=== PATIENT | male | born 1995 | race Caucasian/White ===

== ENCOUNTER 2022-04-24 18:39 | Emergency (ER) | payer OTHER, SELFPAY ==
[2022-04-24 19:00] VITALS: BP 128/89; PULSE 82; RESP 18; TEMP 36.3; O2SAT 99
--- NOTE | 2022-04-24 19:26 | ED_ITS ---
HPI - Dental/Oral General Chief complaint: Dental/Oral Stated complaint: right upper jaw pain Time Seen by Provider: 04/24/22 19:10 History of Present Illness HPI Narrative: 27-year-old male presents the emergency room for evaluation of dental pain. Patient states that he was seen at an urgent care in [place] last week and was given 3-day course of tramadol and some antibiotics. Patient states he is completed the course of antibiotics. Patient presents requesting refill of tramadol. States that he has a dental appointment for next week. Related Data Allergies Allergy/AdvReac Type Severity Reaction Status Date / Time No Known Allergies Allergy Verified 04/24/22 19:02 Review of Systems Review of Systems: CONSTITUTIONAL: Denies fever, chills, or sweats. EYES: Denies visual changes, redness, or discharge. ENT: Reports dental pain CARDIOVASCULAR: Denies chest pain, palpitations, or edema. RESPIRATORY: Denies cough or dyspnea. GASTROINTESTINAL: Denies abdominal pain, nausea, vomiting, or diarrhea. GENITOURINARY: Denies dysuria or hematuria. SKIN: Denies rash or itching. MUSCULOSKELETAL: Denies back pain, joint pain, or myalgia. NEUROLOGIC: Denies headache, numbness, dizziness, or weakness. PSYCHIATRIC: Denies anxiety or depression. Exam Narrative: GENERAL: Well-appearing, well-nourished, no physical limitations, and in no acute distress. HEAD: Normocephalic, atraumatic. EYES: Conjunctivae normal, PERRLA and EOMI. ENT: Widespread dental caries and periodontal disease. No abscess noted to right lower molar NECK: Supple. No adenopathy or masses. CHEST: Clear to auscultation. No respiratory distress. No wheezes rales or rhonchi. No tenderness. HEART: Regular rate and rhythm. No murmur heard. Normal peripheral pulses. EXTREMITIES: Normal range of motion. No edema. No clubbing or cyanosis SKIN: Warm, dry, no rash. No noted wounds NEURO: No focal deficits. Alert and oriented x3. MAEW. CN's II-XI intact bilaterally, normal gait PSYCH: Cooperative. Normal mood and affect. Course Vital Signs Vital signs: Vital Signs Temperature 36.3 C L 04/24/22 19:00 Pulse Rate 82 04/24/22 19:00 Respiratory Rate 18 04/24/22 19:00 Blood Pressure 128/89 04/24/22 19:00 Pulse Oximetry 99 04/24/22 19:00 Oxygen Delivery Room Air 04/24/22 19:00 Temperature 36.3 C L 04/24/22 19:00 Pulse Rate 82 04/24/22 19:00 Respiratory Rate 18 04/24/22 19:00 Blood Pressure 128/89 04/24/22 19:00 Pulse Oximetry 99 04/24/22 19:00 Oxygen Delivery Room Air 04/24/22 19:00 Discharge Plan Discharge Clinical Impression: Dental caries, Toothache Patient Disposition: Home, Self-Care Condition: Stable Instructions: Antibiotic Form, Toothache (ED) Prescriptions: New tramadol 50 mg tablet 50 mg PO Q6H PRN (Reason: pain) Qty: 20 0RF Follow-up/Referrals: PHYSICIAN,HEAD OF [employer]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
== END 2022-04-24 19:37 | disposition home or self-care (01) ==
LOC: ANHED 19:28
PROVIDERS: Emergency Provider Nurse Practitioner Family
DX: K02.9 Dental caries, unspecified (principal)
CPT/HCPCS: 99283

== ENCOUNTER 2023-05-10 06:46 | Emergency (ER) | payer OTHER, SELFPAY ==
[2023-05-10 06:51] VITALS: BP 147/84; PULSE 70; RESP 15; TEMP 36.6; O2SAT 99
[2023-05-10 07:11] LABS: Basophils Percent Auto 0.3 % (0.2-1.2); Eosinophils Absolute Auto 0.1 K/mm3 (0-0.3); Eosinophils Percent Auto 0.6 % (0-4.4); Hemoglobin 14.1 g/dL (14.0-18.0); Immature Granulocyte Absolute 0.05 K/mm3 (0.00-0.031); Immature Granulocyte Percent A 0.4 % (0-0.5); Lymphocytes Absolute Auto 1.61 K/mm3 (0.9-3.2); Lymphocytes Percent Auto 13.6 % (18.3-44.2); Mean Corpuscular HGB Conc 33.6 g/dl (32-36); Mean Corpuscular Hemoglobin 28.8 pg (26-34); Mean Corpuscular Volume 85.9 fl (80-100); Mean Platelet Volume 9.7 fl (7.4-10.4); Monocytes Absolute Auto 0.4 K/mm3 (0.1-0.6); Monocytes Percent Auto 3.5 % (2.6-8.5); Neutrophils Absolute Auto 9.7 K/mm3 (1.3-6.7); Neutrophils Percent Auto 81.6 % (45.5-73.1); Platelet Count Result 215 k/mm3 (150-375); Red Blood Count 4.89 M/mm3 (4.6-6.20); Red Cell Distribution Width 13.2 % (11.5-14.5); White Blood Count 11.9 K/mm3 (4.5-10.0)
[2023-05-10 07:26] LABS: Alanine Aminotransferase 115 U/L (6-50); Albumin Level 4.7 g/dL (3.5-5.1); Alkaline Phosphatase 115 U/L (38-126); Anion Gap 8 mmol/L (8-16); Aspartate Amino Transferase 54 U/L (17-59); Bilirubin,Total 0.9 mg/dL (0.2-1.3); Blood Urea Nitrogen 14 mg/dL (9-20); Calcium 9.8 mg/dL (8.4-10.2); Carbon Dioxide 29 mmol/L (22-30); Chloride 102 mmol/L (98-107); Estimated CRCL calculation 113 ml/min; Estimated Glomerular Filt Rate > 60; Glucose 89 mg/dL (65-110); Lipase 44 U/L (23-300); Potassium 4.1 mmol/L (3.4-5.0); Sodium 139 mmol/L (137-145)
--- NOTE | 2023-05-10 08:15 | ED.GENADULT ---
HPI - General Adult General Chief complaint: Nausea/Vomiting/Diarrhea Stated complaint: N/V/D Time Seen by Provider: 05/10/23 07:56 History of Present Illness HPI narrative: Patient is a 28-year-old male who presents ER with diarrhea. Ongoing over the last 2 to 3 days. He is having 2 loose stools a day. He did have some urgency where he defecated on himself while driving. He has had some mild nausea with vomiting as well. He reports he was driving back from [place] when this was occurring. He has no fevers or chills. He is concerned he may bring this back to his child. No history of recurrent diarrhea or Crohn's/ulcerative colitis. Related Data Allergies Allergy/AdvReac Type Severity Reaction Status Date / Time No Known Allergies Allergy Verified 04/24/22 19:02 Review of Systems Review of Systems: All systems reviewed & are unremarkable except as noted in HPI and below Constitutional: Constitutional: Denies chills, Denies fatigue and Denies fever(s) ENT: Reports system reviewed and no additional complaints, except as documented Cardiovascular: Cardiovascular: Reports no additional cardiovascular complaints Respiratory: Respiratory: Reports no additional respiratory complaints Gastrointestinal: Gastrointestinal: Denies abdominal pain, Denies constipation, Reports diarrhea, Reports nausea and Reports vomiting Musculoskeletal: Musculoskeletal: Reports no additional musculoskeletal complaints PMFSH Past Medical History Medical History (Updated 05/10/23 @ 08:21 by Luis Ferreira MD) Healthy adult male Surgical History Surgical History (Updated 05/10/23 @ 08:21 by Luis Ferreira MD) No history of previous surgery Exam Narrative: GENERAL: Well-appearing, well-nourished, and in no acute distress. HEAD: Normocephalic, atraumatic. ENT: Mucous membranes moist. CHEST: Clear to auscultation. No respiratory distress. HEART: Regular rate and rhythm. Normal peripheral pulses. ABDOMEN: Soft, nontender, nondistended. EXTREMITIES: Normal range of motion. No edema. SKIN: Warm, dry, no rash. NEURO: Alert and oriented x3. PSYCH: Normal mood and affect. Course Course Emergency Course: Benign exam. Discussed supportive care at home. We will give a work note. Nonspecific ALT elevation, may be related to viral GI illness. Vital Signs Vital signs: Vital Signs Temperature 97.8 F 05/10/23 06:51 Pulse Rate 70 05/10/23 06:51 Respiratory Rate 15 05/10/23 06:51 Blood Pressure 147/84 H 05/10/23 06:51 Pulse Oximetry 99 05/10/23 06:51 Oxygen Delivery Room Air 05/10/23 06:51 Temperature 97.8 F 05/10/23 06:51 Pulse Rate 70 05/10/23 06:51 Respiratory Rate 15 05/10/23 06:51 Blood Pressure 147/84 H 05/10/23 06:51 Pulse Oximetry 99 05/10/23 06:51 Oxygen Delivery Room Air 05/10/23 06:51 Medical Decision Making Vital Signs Vital Signs: Vital Signs Temperature 97.8 F 05/10/23 06:51 Pulse Rate 70 05/10/23 06:51 Respiratory Rate 15 05/10/23 06:51 Blood Pressure 147/84 H 05/10/23 06:51 Pulse Oximetry 99 05/10/23 06:51 Oxygen Delivery Room Air 05/10/23 06:51 Temperature 97.8 F 05/10/23 06:51 Pulse Rate 05/10/23 06:51 Respiratory Rate 05/10/23 06:51 Blood Pressure 147/84 H 05/10/23 06:51 Pulse Oximetry 99 05/10/23 06:51 Oxygen Delivery Room Air 05/10/23 06:51 Lab Data 05/10/23 06:57 05/10/23 06:57 Labs: Lab Results 05/10/23 Range/Units 06:57 WBC 11.9 H (4.5-10.0) K/mm3 RBC 4.89 (4.6-6.20) M/mm3 Hgb 14.1 (14.0-18.0) g/dL Hct 42.0 (42.0-52.0) % MCV 85.9 (80-100) fl MCH 28.8 (26-34) pg MCHC 33.6 (32-36) g/dl RDW 13.2 (11.5-14.5) % Plt Count 215 (150-375) k/mm3 MPV 9.7 (7.4-10.4) fl Immature Gran % (Auto) 0.4 (0-0.5) % Neut % (Auto) 81.6 H (45.5-73.1) % Lymph % (Auto) 13.6 L (18.3-44.2) % [place] % (Auto) 3.5 (2.6-8.5) % Eos
[2023-05-10 09:05] VITALS: BP 112/80; PULSE 62; RESP 16; O2SAT 97
== END 2023-05-10 09:05 | disposition home or self-care (01) ==
PROVIDERS: Student in an Organized Health Care Education/Training Program; Emergency Provider Emergency Medicine
DX: K52.9 Noninfective gastroenteritis and colitis, unspecified (principal)
CPT/HCPCS: 36415; 80053; 83690; 85025; 99283

== ENCOUNTER 2023-08-27 18:54 | Emergency (ER) | payer OTHER, SELFPAY ==
--- NOTE | ~2023-08-27 | XR_ITS ---
EXAMINATION: XR chest 2V DATE: 08/27/2023 19:18 INDICATION: Chest pain and shortness of breath TECHNIQUE: PA and lateral views of the chest were obtained. COMPARISON: Chest radiograph dated 08/06/2015 FINDINGS: The lungs remain clear with no focal airspace opacities, pulmonary edema, pleural effusion or pneumot horax. The cardiomediastinal silhouette is normal. Visualized bones and soft tissues are unremarkable . IMPRESSION: 1. Normal chest radiograph. Reviewed, dictated and finalized at location A. CT SERVICE PROFESSIONAL IMPRESSION: 1. Normal chest radiograph.
--- NOTE | 2023-08-27 18:55 | ECG_ITS ---
Measurements Intervals [place] Rate: 63 P: 64 MA: 177 QRS: 14 QRSD: 113 T: 49 QT: 380 QTc: 391 Interpretive Statements SINUS RHYTHM WITH SINUS ARRHYTHMIA INCOMPLETE RIGHT BUNDLE BRANCH BLOCK BORDERLINE ECG NO PREVIOUS ECG AVAILABLE FOR COMPARISON Electronically Signed On 08-27-2023 19:27:14 [employer] ASSISTANT by Elvin Mix D.O.
[2023-08-27 19:10] VITALS: BP 133/84; PULSE 68; RESP 18; TEMP 36.6; O2SAT 100
[2023-08-27 19:12] LABS: Basophils Absolute Auto 0.1 K/mm3 (0.0-0.1); Basophils Percent Auto 0.8 % (0.2-1.2); Eosinophils Absolute Auto 0.5 K/mm3 (0-0.3); Eosinophils Percent Auto 4.7 % (0-4.4); Hematocrit 42.9 % (42.0-52.0); Hemoglobin 14.1 g/dL (14.0-18.0); Immature Granulocyte Absolute 0.02 K/mm3 (0.00-0.031); Immature Granulocyte Percent A 0.2 % (0-0.5); Lymphocytes Absolute Auto 3.57 K/mm3 (0.9-3.2); Lymphocytes Percent Auto 36.9 % (18.3-44.2); Mean Corpuscular HGB Conc 32.9 g/dl (32-36); Mean Corpuscular Hemoglobin 28.6 pg (26-34); Mean Platelet Volume 9.8 fl (7.4-10.4); Monocytes Absolute Auto 0.7 K/mm3 (0.1-0.6); Neutrophils Absolute Auto 4.9 K/mm3 (1.3-6.7); Neutrophils Percent Auto 50.4 % (45.5-73.1); Platelet Count Result 218 k/mm3 (150-375); Red Blood Count 4.93 M/mm3 (4.6-6.20); Red Cell Distribution Width 12.1 % (11.5-14.5); White Blood Count 9.7 K/mm3 (4.5-10.0)
[2023-08-27 19:22] LABS: Alanine Aminotransferase 58 U/L (6-50); Albumin Level 4.4 g/dL (3.5-5.1); Alkaline Phosphatase 73 U/L (38-126); Anion Gap 11 mmol/L (8-16); Aspartate Amino Transferase 36 U/L (17-59); Bilirubin,Total 0.4 mg/dL (0.2-1.3); Blood Urea Nitrogen 17 mg/dL (9-20); Calcium 9.3 mg/dL (8.4-10.2); Carbon Dioxide 25 mmol/L (22-30); Chloride 102 mmol/L (98-107); Estimated Glomerular Filt Rate > 60; Glucose 105 mg/dL (65-110); Lipase 74 U/L (23-300); Potassium 4.1 mmol/L (3.4-5.0); Sodium 138 mmol/L (137-145)
[2023-08-27 19:23] LABS: INR 0.9; Prothrombin Time 12.6 Seconds (11.1-14.7)
[2023-08-27 19:24] LABS: Partial Thromboplastin Time 27.4 SECONDS (22.3-36.8)
[2023-08-27 19:32] LABS: Troponin I < 0.012 ng/mL (0.000-0.034)
[2023-08-27] MEDS: ASPIRIN 81 MG CHEWABLE TABLET 324 MG PO (21:42)
--- NOTE | 2023-08-27 21:42 | ECG_ITS ---
Measurements Intervals [place] Rate: 65 P: 53 WI: 173 QRS: 14 QRSD: 117 T: 45 QT: 396 QTc: 414 Interpretive Statements SINUS RHYTHM WITH MARKED SINUS ARRHYTHMIA INCOMPLETE RIGHT BUNDLE BRANCH BLOCK BORDERLINE ECG COMPARED TO ECG 08/27/2023 19:03:16 NO SIGNIFICANT CHANGES Electronically Signed On 08-30-2023 12:48:54 [employer] by Elvin Mix D.O.
--- NOTE | 2023-08-27 21:45 | PC.NURSE ---
Pt ambulated to hotel front office manager and stated that his cp was getting worse. Pt was brought back for a repeat EKG and was given 324 mg of aspirin. Pt told to let us know if anything changes.
[2023-08-27 22:45] VITALS: PULSE 56
[2023-08-27 23:16] LABS: Troponin I < 0.012 ng/mL (0.000-0.034)
[2023-08-27 23:25] VITALS: O2SAT 97
[2023-08-27] MEDS: BELLADONNA ALK/PHENOB ELIX 10 ML, MAG HYDROX/ALUMINUM HYD/SIMETH 30 ML, LIDOCAINE HCL 2... PO (23:26)
--- NOTE | 2023-08-27 23:45 | ED.GENADULT ---
HPI - General Adult General Chief complaint: Chest Pain Stated complaint: cp, sob, blurred vision, increased tiredness Time Seen by Provider: 08/27/23 23:03 History of Present Illness HPI narrative: patient is a 28-year-old gentleman who presents emergency department with chief complaint of chest pain. Patient reports that he had an episode today while he was watching TV with sharp type pain in his chest the patient states he has also felt kind of tired patient reports that he has family history for cardiac disease in 40s the patient states that currently he is not having discomfort in his chest. Patient does report that he smokes cigarettes reports that he has had no prior cardiac events for himself. Related Data Allergies Allergy/AdvReac Type Severity Reaction Status Date / Time No Known Allergies Allergy Verified 04/24/22 19:02 Review of Systems Review of Systems: A 10 system review of systems was completed on the patient and is negative except for what is stated in the HPI. Nursing and ancillary documentation was reviewed. PMFSH Past Medical History Medical History Healthy adult male Surgical History Surgical History No history of previous surgery Family History Family History Other Family history of sudden cardiac in father Exam Narrative: GENERAL: Well-appearing, well-nourished, and in no acute distress. HEAD: Normocephalic, atraumatic. EYES: PERRLA and EOMI. ENT: Nares clear, no rhinorrhea or epistaxis. Mucous membranes moist. NECK: Supple. CHEST: Clear to auscultation. No respiratory distress. HEART: Regular rate and rhythm. No murmur heard. Normal peripheral pulses. ABDOMEN: Soft, nontender, nondistended, normal active bowel sounds. EXTREMITIES: Normal range of motion. No edema. SKIN: Warm, dry, no rash. NEURO: No focal deficits. Alert and oriented x3. PSYCH: Normal mood and affect. Course Vital Signs Vital signs: Vital Signs Temperature 36.6 C 08/27/23 19:10 Pulse Rate 68 08/27/23 19:10 Respiratory Rate 18 08/27/23 19:10 Blood Pressure 133/84 08/27/23 19:10 Pulse Oximetry 100 08/27/23 19:10 Oxygen Delivery Room Air 08/27/23 19:10 Temperature 36.6 C 08/27/23 19:10 Pulse Rate 56 L 08/27/23 22:45 Respiratory Rate 18 08/27/23 19:10 Blood Pressure 133/84 08/27/23 19:10 Pulse Oximetry 97 08/27/23 23:25 Oxygen Delivery Room Air 08/27/23 23:25 Medical Decision Making MDM Narrative Medical decision making narrative: Differential diagnosis includes noncardiac chest pain, gastritis, esophagitis, ACS, EKG showed no acute ischemic changes 0 hour and 3 hour troponins were negative Vital Signs Vital Signs: Vital Signs Temperature 36.6 C 08/27/23 19:10 Pulse Rate 68 08/27/23 19:10 Respiratory Rate 18 08/27/23 19:10 Blood Pressure 133/84 08/27/23 19:10 Pulse Oximetry 100 08/27/23 19:10 Oxygen Delivery Room Air 08/27/23 19:10 Temperature 36.6 C 08/27/23 19:10 Pulse Rate 56 L 08/27/23 22:45 Respiratory Rate 18 08/27/23 19:10 Blood Pressure 133/84 08/27/23 19:10 Pulse Oximetry 97 08/27/23 23:25 Oxygen Delivery Room Air 08/27/23 23:25 Lab Data 08/27/23 19:06 08/27/23 19:06 Labs: Lab Results 08/27/23 08/27/23 Range/Units 19:06 22:48 WBC 9.7 (4.5-10.0) K/mm3 RBC 4.93 (4.6-6.20) M/mm3 Hgb 14.1 (14.0-18.0) g/dL Hct 42.9 (42.0-52.0) % MCV 87.0 (80-100) fl MCH 28.6 (26-34) pg MCHC 32.9 (32-36) g/dl RDW 12.1 (11.5-14.5) % Plt Count 218 (150-375) k/mm3 MPV 9.8 (7.4-10.4) fl Immature Gran % (Auto) 0.2 (0-0.5) % Neut % (Auto) 50.4 (45.5-73.1) % Lymph % (Auto) 36.9 (18.3-44.2) % [place] % (Auto) 7.0 (2.6-
[2023-08-28 00:07] VITALS: BP 119/75; PULSE 61; RESP 15; O2SAT 99
== END 2023-08-28 00:09 | disposition home or self-care (01) ==
PROVIDERS: Student in an Organized Health Care Education/Training Program; Emergency Provider Emergency Medicine
DX: R07.89 Other chest pain (principal); F17.210 Nicotine dependence, cigarettes, uncomplicated; I45.10 Unspecified right bundle-branch block
CPT/HCPCS: 36415; 71046; 80053; 83690; 84484; 85025; 85610; 85730; 93005; 99284; A9270

== ENCOUNTER 2024-03-03 18:38 | Emergency (ER) | payer OTHER, SELFPAY ==
[2024-03-03 18:48] VITALS: BP 132/75; PULSE 73; RESP 20; TEMP 36.7; O2SAT 98
--- NOTE | 2024-03-03 18:49 | ED_ITS ---
HPI - Nausea/Vomiting/Diarrhea General Chief complaint: Nausea/Vomiting/Diarrhea Stated complaint: heat exhaustion/dehydration/vomiting Time Seen by Provider: 03/03/24 18:49 Focused HPI: This is a 28-year-old male that presents to the emergency department for possible dehydration. 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 Reports today he has been experiencing vomiting and diarrhea. Is concerned he may have heat exhaustion. Reports some body aches and dark urine. Denies fevers or abdominal pain. GENERAL: Well-appearing, well-nourished, and in no acute distress. HEAD: Normocephalic, atraumatic. CHEST: Clear to auscultation. ?No respiratory distress. HEART: Regular rate and rhythm.? NEURO: ?Alert and oriented x3. Patient screened in triage and initial orders placed.? ?Additional care and disposition to be based upon?diagnostic testing and treatment. Related Data Allergies Allergy/AdvReac Type Severity Reaction Status Date / Time No Known Allergies Allergy Verified 03/03/24 18:52 PMFSH Past Medical History Medical History Healthy adult male Surgical History Surgical History No history of previous surgery Family History Family History Other Family history of sudden cardiac in father Course Vital Signs Vital signs: Vital Signs Temperature 98.0 F 03/03/24 18:48 Pulse Rate 73 03/03/24 18:48 Respiratory Rate 20 03/03/24 18:48 Blood Pressure 132/75 03/03/24 18:48 Pulse Oximetry 98 03/03/24 18:48 Oxygen Delivery Room Air 03/03/24 18:48 Temperature 98.0 F 03/03/24 18:48 Pulse Rate 73 03/03/24 18:48 Respiratory Rate 20 03/03/24 18:48 Blood Pressure 132/75 03/03/24 18:48 Pulse Oximetry 98 03/03/24 18:48 Oxygen Delivery Room Air 03/03/24 18:48 MDM - Nausea/Vomiting/Diarrhea MDM Narrative Medical decision making narrative: Patient presents to the emergency department for possible dehydration. Reporting nausea, vomiting and diarrhea. Reporting being outside in the heat the last several days. He eloped after being seen by myself and before any further evaluation or management Differential Diagnosis Differential diagnosis: Likely traveler's diarrhea, food poisoning, gastroenteritis, drug-induced nausea and vomiting, dehydration and other (Rhabdomyolysis) Discharge Plan Discharge Clinical Impression: Nausea and vomiting Patient Disposition: Elopement After Seen by Prov Condition: Guarded Prognosis Prescriptions: No Action tramadol 50 mg tablet 50 mg PO Q6H PRN (Reason: pain) Qty: 20 0RF pantoprazole [Protonix] 40 mg tablet,delayed release (DR/EC) 40 mg PO HS 28 Days Qty: 28 0RF Follow-up/Referrals: PHYSICIAN,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
== END 2024-03-03 22:00 | disposition left against medical advice (07) ==
PROVIDERS: Emergency Provider Physician Assistant
DX: R11.2 Nausea with vomiting, unspecified (principal)
CPT/HCPCS: 99281